=== PATIENT | female | born 1985 | race Caucasian/White ===

== ENCOUNTER 2016-06-30 06:02 | Outpatient (CLI) | payer OTHER ==
[2016-06-30 06:37] LABS: % BASOPHILS 0.2 % (0.0-2.0); % EOSINOPHILS 0.6 % (0.0-5.0); % LYMPHOCYTES 22.5 % (20.0-50.0); % MONOCYTES 5.2 % (2.0-10.0); % NEUTROPHILS 71.5 % (40.0-80.0); HEMATOCRIT 34.5 % (35.0-45.0); HEMOGLOBIN 11.7 gm/dL (11.7-15.5); MEAN CELL VOLUME 85.8 fl (81-100); MEAN CORPUSCULAR HEMOGLOBIN 29.2 pg (27.0-31.0); MEAN PLATELET VOLUME 8.8 fl; NEUTROPHILE ABSOLUTE 4.4 Th/cmm (1.8-8.0); PLATELET COUNT 249 Th/cmm (150-400); RED BLOOD COUNT 4.02 Mil/cmm (3.80-5.10); RED CELL DISTRIBUTION WIDTH 12.2 % (11.5-20.0)
[2016-06-30 06:46] LABS: WHITE BLOOD COUNT 6.1 Th/cmm (4.8-10.8)
[2016-06-30 07:17] LABS: GLUCOSE FASTING 82 mg/dL (70-105)
[2016-06-30 08:08] LABS: 1 HR GLUCOSE 86 mg/dL
[2016-06-30 10:49] LABS: URINE BILIRUBIN NEGATIVE (NEGATIVE); URINE BLOOD NEGATIVE (NEGATIVE); URINE COLOR YELLOW; URINE GLUCOSE (UA) NEGATIVE (NEGATIVE); URINE KETONE NEGATIVE (NEGATIVE); URINE PROTEIN NEGATIVE (NEGATIVE); URINE UROBILINOGEN 0.2 E.U./dL (0.2 - 1.0)
[2016-06-30 11:02] LABS: URINE EPITHELIAL CELLS FEW /lpf (FEW); URINE RBC NONE SEEN /hpf (0-5); URINE WBC 0-2 /hpf (0-5)
[2016-06-30 11:03] LABS: URINE BACTERIA MODERATE /hpf (NONE SEEN)
[2016-07-04 03:09] LABS: CHLAMYDIA DNA SDA PROBETEC Negative (Negative); GC DNA SDA PROBETEC Negative (Negative)
== END 2016-06-30 07:45 | disposition home or self-care (01) ==
LOC: EEVIPCON 06:02 → LAB 06:02
DX: Z34.90 Encounter for supervision of normal pregnancy, unspecified, unspecified trimester (principal); N30.00 Acute cystitis without hematuria; Z11.2 Encounter for screening for other bacterial diseases
CPT/HCPCS: 36415-UA; 81001-TC; 83036-90; 85025-TC; 86592-TC; 86703-TC; 86706-90; 86762-90; 86850-TC; 86900-TC; 86901-TC; 87491-90

== ENCOUNTER 2016-10-30 06:54 | Outpatient (CLI) | payer OTHER ==
[2016-10-30 07:13] LABS: % BASOPHILS 0.4 % (0.0-2.0); % EOSINOPHILS 0.9 % (0.0-5.0); % MONOCYTES 6.2 % (2.0-10.0); % NEUTROPHILS 75.5 % (40.0-80.0); HEMATOCRIT 31.3 % (35.0-45.0); HEMOGLOBIN 10.8 gm/dL (11.7-15.5); MEAN CELL VOLUME 87.6 fl (81-100); MEAN CORPUSCULAR HEMOGLOBIN 30.1 pg (27.0-31.0); MEAN CORPUSCULAR HGB CONC 34.4 pg (28.0-36.0); MEAN PLATELET VOLUME 8.7 fl; NEUTROPHILE ABSOLUTE 6.5 Th/cmm (1.8-8.0); PLATELET COUNT 227 Th/cmm (150-400); RED BLOOD COUNT 3.57 Mil/cmm (3.80-5.10); RED CELL DISTRIBUTION WIDTH 12.9 % (11.5-20.0)
[2016-10-30 07:14] LABS: WHITE BLOOD COUNT 8.6 Th/cmm (4.8-10.8)
[2016-10-30 08:06] LABS: GLUCOSE FASTING 82 mg/dL (70-105)
[2016-10-30 08:38] LABS: 1 HR GLUCOSE 132 mg/dL (70-105)
== END 2016-10-30 08:50 | disposition home or self-care (01) ==
LOC: LAB 06:54
DX: Z34.90 Encounter for supervision of normal pregnancy, unspecified, unspecified trimester (principal); Z3A.00 Weeks of gestation of pregnancy not specified
CPT/HCPCS: 36415-UA; 85025-TC; 86705-90; 86706-90; 86787-90